=== PATIENT | female | born 1995 | race Hispanic/Latino ===

== ENCOUNTER 2024-08-16 08:55 | Day surgery (SDC) | payer MEDICAID, SELFPAY ==
[~2024-08-16 08:55] MED LIST: Acetaminophen 325 MG TAB PO PRN; diphenhydrAMINE 25 MG CAP PO PRN
[2024-08-16] MEDS: Iron Sucrose Complex 500 MG in Sodium Chloride 0.9% 250 ML 250 ML IVPB SCH (09:49)
[2024-08-16 15:03] VITALS: BP 119/75; TEMP 97.8
== END 2024-08-16 14:30 | disposition home or self-care (01) ==
LOC: ONC/OP 08:55
PROVIDERS: ATTEND Obstetrics & Gynecology
DX: D50.9 Iron deficiency anemia, unspecified (principal)
CPT/HCPCS: 96365; 96366; J1756; J7050